=== PATIENT | female | born 1985 | race Two or more races ===

== ENCOUNTER 2021-10-05 14:25 | Emergency (ER) | payer MEDICAID, OTHER ==
[~2021-10-05] VITALS: Ht 162.6 cm; Wt 70.3 kg
[2021-10-05 14:28] VITALS: BP 118/76
== END 2021-10-05 18:20 | disposition left against medical advice (07) ==
LOC: ER 14:25
DX: R42 Dizziness and giddiness (principal); R51.9 Headache, unspecified; Z53.21 Procedure and treatment not carried out due to patient leaving prior to being seen by health care provider

== ENCOUNTER 2021-10-19 18:14 | Inpatient (IN) | payer MEDICAID ==
[~2021-10-19] VITALS: Ht 162.6 cm; Wt 77.6 kg
[2021-10-19 19:09] LABS: Basophils # (auto) 0.1 10 ^3/uL (0-0.2); Eosinophils # (auto) 0.1 10 ^3/uL (0-0.8); Eosinophils % (auto) 1.9 % (0.0-7.0); Hematocrit 36.7 % (36.0-46.0); Hemoglobin 12.4 g/dL (12.2-16.2); Lymphocytes # (auto) 0.9 10 ^3/uL (0.4-5.4); Lymphocytes % (auto) 13.2 % (10.0-50.0); Mean Corpuscular Hemoglobin 28.8 pg (28.0-32.0); Mean Corpuscular Hgb Conc. 33.8 g/dL (32.0-36.0); Mean Corpuscular Volume 85.1 fL (80.0-100.0); Monocytes # (auto) 0.3 10 ^3/uL (0-1.3); Neutrophils # (auto) 5.1 10 ^3/uL (1.6-8.6); Neutrophils % (auto) 79.9 % (37.0-80.0); Nucleated Red Blood Cells % 0.1 %; Red Blood Cells 4.32 10^6/uL (4.0-5.20); Red Cell Distribution Width 16.2 % (11.8-14.3); White Blood Cell 6.4 10^3/uL (4.4-10.8)
[2021-10-19] MEDS ORDERED: ONDANSETRON HCL 4 MG/2 ML VIAL IV ONE (19:15)
[2021-10-19] MEDS ORDERED: SODIUM CHLORIDE 0.9% 1,000 ML IVB ONE (19:15)
[2021-10-19] MEDS ORDERED: MORPHINE SULFATE 4 MG/ML SYR/VIAL IV ONE (19:15)
[2021-10-19] MEDS ORDERED: PANTOPRAZOLE 40 MG/10 ML VIAL INJ IV ONE (19:15)
[2021-10-19 19:19] LABS: Urine Bacteria NONE SEEN /hpf (None Seen); Urine Blood Negative /uL (Negative); Urine Specific Gravity 1.004 (1.001-1.035); Urine WBC 27 /hpf (0 - 5)
[2021-10-19 19:23] LABS: Albumin 3.8 g/dL (3.4-5.0); BUN/Creatinine Ratio 12.3; Calcium 8.9 mg/dL (8.5-10.1); Potassium 3.8 mmol/L (3.5-5.1)
[2021-10-19 19:25] LABS: Bilirubin, Total 0.4 mg/dL (0.2-1.0); Total Protein 8.2 g/dL (6.4-8.2)
[2021-10-19 20:31] LABS: Amylase 51 U/L (25-115); Lipase 97 U/L (73-393)
[2021-10-19] MEDS ORDERED: cefTRIAXone 1GM/50ML D5W 50 ML IV ONE (20:45)
[2021-10-19] MEDS ORDERED: NITROGLYCERIN 0.4 MG SL TAB SL PRN (21:30)
[2021-10-19] MEDS ORDERED: MORPHINE SULFATE INJECTION 2 MG/ML SYRG IV PRN ×2 (21:30)
[2021-10-19] MEDS ORDERED: ONDANSETRON HCL 4 MG/2 ML VIAL IV PRN ×2 (21:30)
[2021-10-19] MEDS: SODIUM CHLORIDE 0.9% 1,000 ML IV SCH (23:46)
[2021-10-20 05:00] VITALS: BP 100/48
[2021-10-20] MEDS: SODIUM CHLORIDE 0.9% 1,000 ML IV SCH ×3 (05:50→22:52)
[2021-10-20 06:22] LABS: Basophils # (auto) 0.1 10 ^3/uL (0-0.2); Basophils % (auto) 1.1 % (0.0-2.0); Eosinophils # (auto) 0.1 10 ^3/uL (0-0.8); Eosinophils % (auto) 2.4 % (0.0-7.0); Hematocrit 32.6 % (36.0-46.0); Lymphocytes # (auto) 1.1 10 ^3/uL (0.4-5.4); Lymphocytes % (auto) 24.1 % (10.0-50.0); Mean Corpuscular Hemoglobin 28.6 pg (28.0-32.0); Mean Corpuscular Hgb Conc. 33.7 g/dL (32.0-36.0); Mean Corpuscular Volume 84.7 fL (80.0-100.0); Monocytes # (auto) 0.4 10 ^3/uL (0-1.3); Monocytes % (auto) 8.8 % (0.0-12.0); Neutrophils # (auto) 2.9 10 ^3/uL (1.6-8.6); Neutrophils % (auto) 63.6 % (37.0-80.0); Nucleated Red Blood Cells % 0.1 %; Red Blood Cells 3.85 10^6/uL (4.0-5.20); Red Cell Distribution Width 15.8 % (11.8-14.3); White Blood Cell 4.6 10^3/uL (4.4-10.8)
[2021-10-20 06:36] LABS: Potassium 3.3 mmol/L (3.5-5.1)
[2021-10-20 06:57] LABS: Albumin 3.3 g/dL (3.4-5.0); BUN/Creatinine Ratio 16.4; Bilirubin, Total 0.8 mg/dL (0.2-1.0); Calcium 8.4 mg/dL (8.5-10.1); Total Protein 6.9 g/dL (6.4-8.2)
[2021-10-20 09:00] VITALS: BP 113/72
[2021-10-20] MEDS: cefTRIAXone 1GM/50ML D5W 50 ML IV SCH (09:52)
[2021-10-20 13:00] VITALS: BP_SYST 113; BP_SYST 114; BP_DIAS 65; BP_DIAS 66
[2021-10-20] MEDS ORDERED: ONDANSETRON HCL 4 MG/2 ML VIAL IV PRN (13:00)
[2021-10-20 17:00] VITALS: BP 101/52
[2021-10-20 22:00] VITALS: BP 100/61
[2021-10-21 05:00] VITALS: BP 96/58
[2021-10-21 05:38] LABS: Basophils # (auto) 0 10 ^3/uL (0-0.2); Basophils % (auto) 1.1 % (0.0-2.0); Eosinophils # (auto) 0.2 10 ^3/uL (0-0.8); Eosinophils % (auto) 5.4 % (0.0-7.0); Hematocrit 29.9 % (36.0-46.0); Hemoglobin 10.3 g/dL (12.2-16.2); Lymphocytes # (auto) 1.4 10 ^3/uL (0.4-5.4); Lymphocytes % (auto) 43.5 % (10.0-50.0); Mean Corpuscular Hemoglobin 29.4 pg (28.0-32.0); Mean Corpuscular Hgb Conc. 34.6 g/dL (32.0-36.0); Mean Corpuscular Volume 84.9 fL (80.0-100.0); Monocytes # (auto) 0.5 10 ^3/uL (0-1.3); Monocytes % (auto) 14.6 % (0.0-12.0); Neutrophils # (auto) 1.1 10 ^3/uL (1.6-8.6); Neutrophils % (auto) 35.4 % (37.0-80.0); Nucleated Red Blood Cells % 0.2 %; Red Blood Cells 3.52 10^6/uL (4.0-5.20); Red Cell Distribution Width 15.4 % (11.8-14.3); White Blood Cell 3.2 10^3/uL (4.4-10.8)
[2021-10-21 05:54] LABS: Potassium 3.6 mmol/L (3.5-5.1)
[2021-10-21 05:58] LABS: BUN/Creatinine Ratio 15.4
[2021-10-21 05:59] LABS: Albumin 2.9 g/dL (3.4-5.0)
[2021-10-21 06:02] LABS: Bilirubin, Total 0.2 mg/dL (0.2-1.0); Total Protein 6.3 g/dL (6.4-8.2)
[2021-10-21] MEDS: SODIUM CHLORIDE 0.9% 1,000 ML IV SCH ×2 (07:08→15:10)
[2021-10-21] MEDS: cefTRIAXone 1GM/50ML D5W 50 ML IV SCH (08:26)
[2021-10-21] MEDS: PANTOPRAZOLE 40 MG/10 ML VIAL INJ IV SCH (08:27)
[2021-10-21 09:00] VITALS: BP 92/51
[2021-10-21] MEDS ORDERED: ACETAMINOPHEN 325 MG TAB PO PRN (11:00)
[2021-10-21 12:35] LABS: INR 1.12 (0.9-1.15); Partial Thromboplastin Time 28.9 sec (23.6-33.0)
[2021-10-21 13:00] VITALS: BP 101/61
[2021-10-21 16:40] VITALS: BP 98/57
[2021-10-21 22:00] VITALS: BP 100/59
[2021-10-22 05:00] VITALS: BP 101/57
[2021-10-22] MEDS: SODIUM CHLORIDE 0.9% 1,000 ML IV SCH ×2 (07:50→12:22)
[2021-10-22 09:18] VITALS: BP 100/62
[2021-10-22] MEDS: cefTRIAXone 1GM/50ML D5W 50 ML IV SCH (09:36)
[2021-10-22] MEDS: PANTOPRAZOLE 40 MG/10 ML VIAL INJ IV SCH (09:37)
[2021-10-22] MEDS ORDERED: CEPH-509 PO (11:56)
[2021-10-22 13:00] VITALS: BP 100/60
[2021-10-22 13:40] VITALS: BP 100/60
== END 2021-10-22 15:10 | disposition home or self-care (01) ==
LOC: ER 18:16 → OVERFLOW 21:23 → EAST 23:43
PROVIDERS: ADMIT Hospitalist; ATTEND Hospitalist
DX: K80.00 Calculus of gallbladder with acute cholecystitis without obstruction (principal); N39.0 Urinary tract infection, site not specified; Z20.822 Contact with and (suspected) exposure to COVID-19; Z82.49 Family history of ischemic heart disease and other diseases of the circulatory system
CPT/HCPCS: 36415; 76705; 78226; 80053; 81001; 82150; 83690; 84484; 84702; 85025; 85610; 85730; 86850; 86900; 86901; 87086; 96365; 96375; C9113; G0378; J0696; J2405

== ENCOUNTER 2023-02-14 13:50 | Emergency (ER) | payer MEDICAID ==
[~2023-02-14] VITALS: Ht 162.6 cm; Wt 82.0 kg
[~2023-02-14 13:50] MED LIST: CEPH-509 PO
[2023-02-14 14:45] LABS: Urine Bacteria FEW /hpf (None Seen); Urine Blood Negative /uL (Negative); Urine Clarity HAZY (Clear); Urine Color Colorless (Yellow); Urine Protein, UAD Negative (Negative); Urine Specific Gravity 1.012 (1.001-1.035); Urine Urobilinogen Normal (Negative); Urine WBC 35 /hpf (0 - 5)
[2023-02-14] MEDS ORDERED: BACDST PO (16:49)
[2023-02-14] MEDS ORDERED: IBUP1TAB4 PO (16:49)
[2023-02-14] MEDS ORDERED: VALA1TAB PO (16:49)
[2023-02-14 16:51] LABS: Erythrocyte Sedimentation Rate 17 mm/hr (0-20)
[2023-02-14 18:13] VITALS: BP 124/72; PULSE 83; RESP 18; TEMP 98.6; O2SAT 100
== END 2023-02-14 18:16 | disposition home or self-care (01) ==
LOC: ER 13:50
DX: B02.9 Zoster without complications (principal); R10.2 Pelvic and perineal pain; L03.115 Cellulitis of right lower limb; R51.9 Headache, unspecified; R42 Dizziness and giddiness; R11.0 Nausea; K80.20 Calculus of gallbladder without cholecystitis without obstruction; Z98.890 Other specified postprocedural states; Z79.1 Long term (current) use of non-steroidal anti-inflammatories (NSAID); Z79.899 Other long term (current) drug therapy
CPT/HCPCS: 36415; 70450; 81001; 81025; 84702; 85652

== ENCOUNTER 2024-01-01 15:19 | Emergency (ER) | payer MEDICAID ==
[~2024-01-01] VITALS: Ht 162.6 cm; Wt 80.3 kg
[~2024-01-01 15:19] MED LIST changes: +BACDST PO; +IBUP1TAB4 PO; +VALA1TAB PO
[2024-01-01] MEDS ORDERED: VALA1TAB PO (16:51)
[2024-01-01 16:52] VITALS: BP 119/75; PULSE 89; RESP 16; TEMP 97.9; O2SAT 100
== END 2024-01-01 17:06 | disposition home or self-care (01) ==
LOC: ER 15:23
DX: B02.9 Zoster without complications (principal); K80.20 Calculus of gallbladder without cholecystitis without obstruction; Z79.899 Other long term (current) drug therapy

== ENCOUNTER 2024-02-01 11:10 | Emergency (ER) | payer MEDICAID ==
[~2024-02-01] VITALS: Ht 162.6 cm; Wt 79.2 kg
[2024-02-01] MEDS ORDERED: CEPH500C PO (12:25)
[2024-02-01] MEDS ORDERED: NAPR-746 PO (12:25)
[2024-02-01 12:29] VITALS: BP 137/79; PULSE 82; RESP 18; TEMP 98.3; O2SAT 100
== END 2024-02-01 12:33 | disposition home or self-care (01) ==
LOC: ER 11:10
DX: S50.361A Insect bite (nonvenomous) of right elbow, initial encounter (principal); K80.20 Calculus of gallbladder without cholecystitis without obstruction; Z79.899 Other long term (current) drug therapy; W57.XXXA Bitten or stung by nonvenomous insect and other nonvenomous arthropods, initial encounter; Y93.89 Activity, other specified; Y92.89 Other specified places as the place of occurrence of the external cause; Y99.8 Other external cause status